=== PATIENT | male | born 2000 | race Caucasian/White ===

== ENCOUNTER 2025-03-18 15:24 | Emergency (ER) | payer MEDICAID ==
[~2025-03-18] VITALS: Ht 175.3 cm; Wt 72.0 kg
[2025-03-18 15:35] VITALS: O2SAT 100
[2025-03-18] MEDS ORDERED: IBUP-2030 MT (16:28)
[2025-03-18] MEDS ORDERED: METO10TA3 MT (16:28)
[2025-03-18 16:30] LABS: HEMATOCRIT. 44.1 % (42.0-52.0); HEMOGLOBIN. 15.2 g/dL (14.0-18.0); MEAN PLATELET VOLUME 8.5 fl (7.4-10.4); PLATELET 244 x1000/uL (130-400); RED BLOOD CELL COUNT 5.14 mill/uL (4.7-6.1); RED CELL DISTRIBUTION WIDTH 13.2 % (11.6-14.6)
[2025-03-18 16:37] LABS: CREATININE 1.0 mg/dL (0.6-1.3); UREA NITROGEN BLOOD 6 mg/dL (9-23)
[2025-03-18] MEDS: METOCLOPRAMIDE HCL 10MG TABLET PO ONE (16:37)
[2025-03-18] MEDS: IBUPROFEN 800MG TABLET PO ONE (16:38)
[2025-03-18 16:39] LABS: ASPARTATE AMINOTRANSFERASE 22 IU/L (<34); BILIRUBIN TOTAL 0.9 mg/dL (0.1-1.0)
[2025-03-18 16:40] LABS: PROTEIN TOTAL 8.0 g/dL (6.0-8.3)
[2025-03-18 17:15] VITALS: BP 101/72; PULSE 74; RESP 16; TEMP 36.9; O2SAT 99
[2025-03-18 17:27] LABS: BAND% 1.0 % (1.0-6.0); EOSINOPHILS % MANUAL 33.0 % (0.0-5.0); LYMPHOCYTES % MANUAL 22.0 % (20.0-50.0); MONOCYTES % MANUAL 5.0 % (2.0-8.0); NEUTROPHILS % MANUAL 39.0 % (45.0-75.0); PLATELET ESTIMATE NORMAL
== END 2025-03-18 17:15 | disposition home or self-care (01) ==
LOC: ER 15:24
DX: R51.9 Headache, unspecified (principal); R11.0 Nausea
CPT/HCPCS: 99283; 80053; 83690; 85025; 36415; J8597